=== PATIENT | male | born 1965 | race Caucasian/White ===

== ENCOUNTER 2021-05-20 09:07 | Outpatient (CLI) | payer BC ==
[~2021-05-20] VITALS: Ht 175 cm; Wt 131.0 kg
[2021-05-20 09:15] VITALS: BP 138/83
[2021-05-20] MEDS ORDERED: ONDANSETRON 4 MG/2 ML (SDV) Z0FRAN IV PRN (09:15)
[2021-05-20] MEDS ORDERED: CASIRIVIMAB/IMDEVIMAB 1,200 MG in NS (IVPB) 50 ML IV ONE (09:15)
[2021-05-20] MEDS ORDERED: ACETAMINOPHEN 500 MG TAB (TYLENOL) PO PRN (09:15)
[2021-05-20] MEDS ORDERED: EPINEPHrine INJECTION 1 MG/ML AMP IM PRN (09:15)
[2021-05-20] MEDS ORDERED: diphenhydrAMINE 50 MG/ML INJ (BENADRYL) IV PRN (09:15)
[2021-05-20 10:16] VITALS: BP 112/71
== END 2021-05-20 10:35 ==
LOC: INFUSION 09:07
PROVIDERS: ATTEND Internal Medicine
DX: U07.1 COVID-19 (principal)

== ENCOUNTER → 2021-12-12 | Outpatient (CLI) | payer BC ==
[~2021-12-12] MED LIST: CATHETER FLUSH 10 ML SYR IV PRN; HOLD METFORMIN - RECEIVED CONTRAST 20 ML VIAL IV SCH; IOHEXOL 350 MG/ML 100 ML (OMNIPAQUE 350) VIAL IV ONE; NS 100 ML (IVPB) BAG IV ONE
--- NOTE | 2021-12-12 12:23 | Diagnostic Imaging Report ---
PROCEDURE: CT angiography of the chest with contrast. TECHNIQUE: Multiple contiguous axial images were obtained through the chest after uneventful bolus administration of intravenous contrast. 3D reconstructed CTA MIP acquisitions were also performed. Auto Exposure Controls were utilized during the CT exam to meet ALARA standards for radiation dose reduction. INDICATION: Difficulty breathing with heaviness in the chest. No prior studies are available for comparison. Evaluation of the pulmonary arterial system is without evidence of thromboembolism. No filling defects are seen within central, lobar or segmental branches. The thoracic aorta is normal caliber. No dissection is seen. There is no pericardial or pleural fluid identified. No axillary, hilar or mediastinal lymphadenopathy is detected. No infiltrates, nodules or masses are seen. Upper abdomen is unremarkable. IMPRESSION: No evidence of pulmonary embolism or acute aortic disease. Dictated by: Dictated on workstation # [id number]
== END ==
LOC: CARD 11:00
PROVIDERS: ATTEND Internal Medicine
DX: U07.1 COVID-19 (principal); R73.09 Other abnormal glucose
CPT/HCPCS: 71275; 93306

== ENCOUNTER → 2021-12-17 | Outpatient (CLI) | payer BC | LOC: CARD 13:15 | PROVIDERS: ATTEND Internal Medicine | DX: R00.2 Palpitations (principal) | CPT/HCPCS: 93225; 93226 ==

== ENCOUNTER → 2022-01-12 | Outpatient (CLI) | payer BC ==
[~2022-01-12] MED LIST changes: -CATHETER FLUSH 10 ML SYR IV PRN; -HOLD METFORMIN - RECEIVED CONTRAST 20 ML VIAL IV SCH; -IOHEXOL 350 MG/ML 100 ML (OMNIPAQUE 350) VIAL IV ONE; -NS 100 ML (IVPB) BAG IV ONE; +RT-ALBUTEROL SULF 2.5 MG/3 ML PRE-MIX VIAL INH ONE
== END ==
LOC: RT 08:59
PROVIDERS: ATTEND Internal Medicine
DX: I27.20 Pulmonary hypertension, unspecified (principal)
CPT/HCPCS: 94060; 94621; 94726; 94729

== ENCOUNTER → 2022-03-05 | Outpatient (CLI) | payer BC ==
[~2022-03-05] VITALS: Ht 172 cm; Wt 138.0 kg
[~2022-03-05] MED LIST changes: +CATHETER FLUSH 10 ML SYR IVP PRN; +REGADENOSON 0.4 MG/5 ML SYR (LEXISCAN) IV ONE; -RT-ALBUTEROL SULF 2.5 MG/3 ML PRE-MIX VIAL INH ONE
[2022-03-05 08:53] VITALS: BP 131/83
--- NOTE | 2022-03-09 15:53 | NUCLEAR STRESS TEST ---
REGADENOSON NUCLEAR STRESS Date of procedure: 03/05/2022. Primary care provider: Jairo Nj DO Admitting physician: Deshawn Cuevas Jr., MD. INDICATION: Abnormal electrocardiogram. BASELINE ELECTROCARDIOGRAM: Sinus rhythm with frequent premature ventricular complexes, low voltage in the precordial leads and nonspecific ST-T wave changes. STRESS TEST PROCEDURE: The patient was administered 0.4 mg of intravenous Regadenoson. The resting heart rate was 76 bpm and the peak heart rate was 101 bpm. The resting blood pressure was 131/83 mmHg and the minimum blood pressure was 131/83 mmHg. This represents a normal heart rate and a blunted blood pressure response to Regadenoson. The test was stopped due to the protocol. There was no chest discomfort during the test. There were isolated premature ventricular complexes throughout the test. There were no significant stress induced electrocardiogram changes. NUCLEAR PROCEDURE: The patient was administered 11 mCi of intravenous technetium 99m Tetrofosmin at rest for the rest images. The patient was subsequently administered 30.2 mCi of intravenous technetium 99m Tetrofosmin at peak stress for the stress images. Following an appropriate wait after each injection, imaging was obtained. The images were subsequently processed and reformatted in the usual views. Gated imaging was obtained. The image quality was adequate with a mild degree of gastrointestinal attenuation artifact. CT attenuation correction was used as a adjunct to standard imaging. Both the corrected and uncorrected images were reviewed for interpretation. NUCLEAR RESULTS: There was normal myocardial perfusion in all segments without evidence of infarction or ischemia. There was normal left ventricular chamber size with an end-diastolic volume of 59 mL and an end-systolic volume of 16 mL. There was no evidence of transient ischemic dilatation. The TID ratio was 1.01. There was normal wall motion in all segments with a calculated ejection fraction of 72%. IMPRESSION: 1. Normal heart rate and a blunted blood pressure response to regadenoson. 2. There was no chest discomfort or electrocardiogram changes during the test. 3. There were isolated premature ventricular complexes throughout the test. 4. There was normal myocardial perfusion in all segments without evidence of infarction or ischemia. 5. There was normal wall motion in all segments with a calculated ejection fraction of 72%. Certain portions of this document may have been dictated utilizing voice recog nition technology. Inherent to this technology, typographical and grammatical errors may exist. As much as I am diligent to identify and correct these mistakes, some errors may remain in the document. DESHAWN CUEVAS JR, MD Mar 09, 2022 15:53
== END ==
LOC: CARD 07:11
PROVIDERS: ATTEND Internal Medicine Cardiovascular Disease
DX: R94.31 Abnormal electrocardiogram [ECG] [EKG] (principal)
CPT/HCPCS: 78452; 93017; A9502

== ENCOUNTER → 2022-03-30 | Outpatient (CLI) | payer BC | LOC: CARD 14:00 | PROVIDERS: ATTEND Internal Medicine Cardiovascular Disease | DX: I49.3 Ventricular premature depolarization (principal) | CPT/HCPCS: 93225; 93226 ==

== ENCOUNTER → 2022-04-21 | Outpatient (CLI) | payer BC ==
[~2022-04-21] MED LIST changes: +ASPI-999 PO; -CATHETER FLUSH 10 ML SYR IVP PRN; +DIAZ2TAB2 PO; +ENAL1TAB9 PO; +GBPN600T PO; +LIDO700A45 TP; +METO50TA7 PO; +PANT40GR PO; +PRAM1TAB5 PO; -REGADENOSON 0.4 MG/5 ML SYR (LEXISCAN) IV ONE; +TADA5TAB4 PO; +TEST200V21 IM
[2022-04-21 09:14] LABS: BASOPHILS % (AUTO) 1 % (0-10); EOSINOPHILS # (AUTO) 0.3 10^3/uL (0.0-0.3); EOSINOPHILS % (AUTO) 3 % (0-10); HEMATOCRIT 47 % (40-54); HEMOGLOBIN 15.4 g/dL (13.3-17.7); LYMPHOCYTES # (AUTO) 1.8 10^3/uL (1.0-4.0); LYMPHOCYTES % (AUTO) 21 % (12-44); MEAN CORPUSCULAR HEMOGLOBIN 29 pg (25-34); MEAN CORPUSCULAR HGB CONC 33 g/dL (32-36); MEAN CORPUSCULAR VOLUME 89 fL (80-99); MEAN PLATELET VOLUME 8.7 fL (9.0-12.2); MONOCYTES # (AUTO) 0.8 10^3/uL (0.0-1.0); MONOCYTES % (AUTO) 10 % (0-12); NEUTROPHILS # (AUTO) 5.5 10^3/uL (1.8-7.8); NEUTROPHILS % (AUTO) 65 % (42-75); PLATELET COUNT 245 10^3/uL (130-400); WHITE BLOOD COUNT 8.5 10^3/uL (4.3-11.0)
[2022-04-21 09:25] LABS: PROTHROMBIN TIME PATIENT 13.3 SEC (12.2-14.7)
[2022-04-21 09:31] LABS: CALCIUM 9.1 MG/DL (8.5-10.1); CREATININE SERUM 1.02 MG/DL (0.60-1.30)
== END ==
LOC: LAB 08:46
PROVIDERS: ATTEND Internal Medicine Cardiovascular Disease
DX: I27.20 Pulmonary hypertension, unspecified (principal); I42.9 Cardiomyopathy, unspecified; I49.3 Ventricular premature depolarization; R94.31 Abnormal electrocardiogram [ECG] [EKG]; I10 Essential (primary) hypertension; K21.9 Gastro-esophageal reflux disease without esophagitis; E66.01 Morbid (severe) obesity due to excess calories
CPT/HCPCS: 36415; 80048; 85025; 85610

== ENCOUNTER 2022-04-23 09:00 | Day surgery (SDC) | payer BC ==
[2022-04-23] VITALS (9 sets, daily range): BP systolic 90–140; BP diastolic 49–87
[~2022-04-23] VITALS: Ht 172 cm; Wt 145.4 kg
--- NOTE | 2022-04-23 08:34 | Pre-Op Note & Conscious Sedat ---
Pre-Operative Progress Note Date H&P Reviewed: Apr 23, 2022 Time H&P Reviewed: 08:30 History & Physical: H&P Reviewed, Patient Examed, No changes noted Pre-Op Diagnosis: Angina pectoris Conscious Sedation Pre-Proced ASA Score 2 For ASA 3 and 4: Consider anesthesia and medical clearance. Also, for patients with a history of failed moderate sedation consider anesthesia. Airway Lungs Heart ASA score ASA 1: a normal healthy patient ASA 2: a patient with a mild systemic disease (mid diabetes, controlled hypertension, obesity ASA 3: a patient with a severe systemic disease that limits activity (angina, COPD, prior Myocardial infarction) ASA 4: a patient with an incapacitating disease that is a constant threat to life (CHF, renal failure) ASA 5: a moribund patient not expected to survive 24 hrs. (ruptured aneurysm) ASA 6: a declared brain- patient whose organs are being harvested. For emergent operations, add the letter E after the classification Mallampati Classification Grade 3 Sedation Plan Analgesia, Amnesia, Plan communicated to team members, Discussed options with patient/fam, Discussed risks with patient/fam The patient is an appropriate candidate to undergo the planned procedure, sedation, and anesthesia. The patient immediately re-assessed prior to indication. Given his current clinical status, he is considered vulnerable. He has no history of heart failure. TRAN DIAZ JR, MD Apr 23, 2022 08:34
[~2022-04-23 09:00] MED LIST changes: +ASPIRIN 81 MG CHEW (CHILDREN'S ASA) ONE; +ASPIRIN 81 MG CHEW (CHILDREN'S ASA) PO ONE; +CATHETER FLUSH 10 ML SYR IV PRN; +HEParin (CATH LAB) 2,000 ML IV ONE; +LIDOCAINE 1% INJ 30 ML (XYLOCAINE) VIAL ONE; +NS IV 1000 ML 1,000 ML IV ONE; +NS IV 1000 ML 1,000 ML ONE
[2022-04-23] MEDS ORDERED: fentaNYL INJ 100 MCG/2 ML AMP ONE (09:02)
[2022-04-23] MEDS ORDERED: VERAPAMIL 5 MG/2 ML (CALAN) VIAL IV ONE (09:02)
[2022-04-23] MEDS ORDERED: MIDAZOLAM 5 MG/5 ML (VERSED) VIAL ONE (09:02)
[2022-04-23] MEDS ORDERED: HEParin 1000 UNIT/ML (10ML VIAL) FOR BOLUS ONE (09:02)
[2022-04-23] MEDS ORDERED: NITRO DRIP 25000 MCG/D5W 0 ML IV ONE (09:03)
[2022-04-23] MEDS ORDERED: NS IV 1000 ML 1,000 ML IV SCH (10:00)
--- NOTE | 2022-04-23 10:00 | Cardiac Cath Report ---
CARDIAC CATHETERIZATION DATE OF PROCEDURE: 04/23/2022 INDICATION: Angina pectoris. HISTORY: The patient is a 56 year old male who has been having intermittent chest discomfort consistent with angina pectoris. He underwent an outpatient nuclear stress test that showed normal myocardial perfusion. However, despite being on 2 antianginal medications with metoprolol and ranolazine, he continues to have chest discomfort. As such, he is now referred for further evaluation with a cardiac catheterization. Given his current clinical status, he is considered vulnerable. He has no history of heart failure. PROCEDURES PERFORMED: 1. Diagnostic coronary angiography. PROCEDURE DESCRIPTION: After informed consent and in the fasting state, left heart catheterization was performed through the right femoral artery utilizing a 6 Welsh system by percutaneous approach. I initially attempted to gain access to the right radial artery but even with ultrasound guidance, I could enter the vessel with the micropuncture needle but could not advance the wire. Therefore, I changed over to the right femoral approach. Standard Simone catheters were utilized for the diagnostic portion of the procedure. All catheters were exchanged over a guidewire. Following the procedure, a right femoral angiogram revealed the sheath to be entering above the bifurcation and the vessel was free of significant disease. A Mynx closure device was deployed for hemostasis. RESULTS: HEMODYNAMICS: The aortic pressure was 116/79 mmHg. Left ventricular pressures were not obtained. CORONARY ANGIOGRAPHY: Left main coronary artery: Free of significant disease. Left anterior descending coronary artery: There was a 40% stenosis proximally and a 50% stenosis distally with JOEY-2 flow. The apical portion of the vessel was somewhat aneurysmal. Left circumflex coronary artery: Free of significant disease. Right coronary artery: Dominant with a significant amount of ectasia in the proximal to mid segment with JOEY-1 flow. IMPRESSION: 1. Normal central aortic pressure. 2. 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 The right coronary artery is ectatic with slow flow but does not contain any significant stenotic disease. 3. The patient is known to have normal left ventricular systolic function with a calculated ejection fraction of 72% by nuclear stress test that was performed on 03/05/2022. Certain portions of this document may have been dictated utilizing voice recognition technology. Inherent to this technology, typographical and grammatical errors may exist. As much as I am diligent to identify and correct these mistakes, some errors may remain in the document. TRAN DIAZ JR, MD Apr 23, 2022 10:00
== END 2022-04-23 13:15 | disposition home or self-care (01) ==
LOC: CATH 09:00 → SDC 10:16 → CATH 13:15
PROVIDERS: ATTEND Internal Medicine Cardiovascular Disease
DX: I25.110 Atherosclerotic heart disease of native coronary artery with unstable angina pectoris (principal)
CPT/HCPCS: 87081; 93454; C1760; C1894

== ENCOUNTER → 2022-06-12 | Outpatient (CLI) | payer BC ==
[~2022-06-12] MED LIST changes: -ASPIRIN 81 MG CHEW (CHILDREN'S ASA) ONE; -ASPIRIN 81 MG CHEW (CHILDREN'S ASA) PO ONE; -CATHETER FLUSH 10 ML SYR IV PRN; -HEParin (CATH LAB) 2,000 ML IV ONE; -LIDOCAINE 1% INJ 30 ML (XYLOCAINE) VIAL ONE; -NS IV 1000 ML 1,000 ML IV ONE; -NS IV 1000 ML 1,000 ML ONE
== END ==
LOC: CARD 08:17
PROVIDERS: ATTEND Internal Medicine Cardiovascular Disease
DX: I27.20 Pulmonary hypertension, unspecified (principal)
CPT/HCPCS: 93306

== ENCOUNTER 2022-10-28 10:08 | Outpatient (CLI) | payer BC | END 2022-10-28 10:25 | LOC: SLEEP 10:08 | PROVIDERS: ATTEND Otolaryngology Otolaryngology/Facial Plastic Surgery | DX: G47.33 Obstructive sleep apnea (adult) (pediatric) (principal); G47.36 Sleep related hypoventilation in conditions classified elsewhere; R06.83 Snoring | CPT/HCPCS: G0399 ==

== ENCOUNTER 2022-11-11 05:34 | Outpatient (CLI) | payer BC ==
[~2022-11-11] VITALS: Ht 172.7 cm; Wt 140.9 kg
[2022-11-11] MEDS ORDERED: SEMA7TAB2 PO (11:02)
[2022-11-11] MEDS ORDERED: RT-ALBUINH INH (11:02)
[2022-11-11] MEDS ORDERED: ATOR40TA70 PO (11:02)
[2022-11-11] MEDS ORDERED: AMIT25TA9 PO (11:02)
[2022-11-11] MEDS ORDERED: NYST15PO2 TP (11:02)
== END 2022-11-11 11:08 | disposition home or self-care (01) ==
LOC: PREOP 05:34
PROVIDERS: ATTEND Orthopaedic Surgery
DX: Z01.818 Encounter for other preprocedural examination (principal)